=== PATIENT | male | born 1940 | race Caucasian/White ===

== ENCOUNTER 2018-03-20 16:18 | Inpatient (IN) | payer MEDICARE, OTHER ==
[~2018-03-20] VITALS: Ht 168.9 cm; Wt 85.0 kg
[2018-03-20 17:24] VITALS: BP 153/80
[2018-03-20] MEDS ORDERED: LOSA1TAB39 (17:56)
[2018-03-20] MEDS ORDERED: HYDR-3972 (17:56)
[2018-03-20] MEDS ORDERED: LEVO125T8 (17:56)
[2018-03-20] MEDS ORDERED: PANT40TA4 (17:56)
[2018-03-20] MEDS ORDERED: METO50TA16 (17:56)
[2018-03-20] MEDS ORDERED: ZOLP10TA5 (17:56)
[2018-03-20] MEDS ORDERED: ATOR10TA70 (17:57)
[2018-03-20] MEDS ORDERED: mag hydrox/Alum hydrox/simeth 30ml oral suspension PO PRN (18:25)
[2018-03-20] MEDS ORDERED: magnesium 2GM in 50ml NS 50 ML IV PRN (18:25)
[2018-03-20] MEDS ORDERED: HYDROcodone/acetaminophen 10/325mg tab PO PRN (18:25)
[2018-03-20] MEDS ORDERED: magnesium 4gm in 100ml NS 100 ML IV PRN (18:25)
[2018-03-20] MEDS ORDERED: magnesium Cl slow-release 64mg tablet PO PRN (18:25)
[2018-03-20] MEDS ORDERED: morphine 4 MG/ML inj SYRINge IV PRN ×2 (18:25)
[2018-03-20] MEDS ORDERED: magnesium hydroxide 30ml (MOM) UD suspension PO PRN (18:25)
[2018-03-20] MEDS ORDERED: acetaminophen 325mg tablet PO PRN ×2 (18:25)
[2018-03-20] MEDS ORDERED: HYDROcodone/acetaminophen 5mg/325mg tablet PO PRN (18:25)
[2018-03-20] MEDS: K and/or MAG REPLACEMENT MC SCH (18:25)
[2018-03-20] MEDS ORDERED: potassium Cl 20 mEq SR tablet PO PRN (18:25)
[2018-03-20] MEDS ORDERED: potassium Cl 40MEQ/NS 500ml 500 ML IV PRN ×2 (18:25)
[2018-03-20] MEDS ORDERED: ondansetron/PF 4mg/2ml inj IV PRN (18:25)
[2018-03-20 19:36] LABS: BASOPHILS % (AUTO) 0.5 % (0-1); EOSINOPHILS # (AUTO) 0.1 X10'3 (0-0.9); EOSINOPHILS % (AUTO) 1.9 % (0-6); HEMATOCRIT 35.8 % (42.0-52.0); HEMOGLOBIN 12.2 g/dl (14.0-17.9); LYMPHOCYTES # (AUTO) 1.4 X10'3 (1.1-4.8); LYMPHOCYTES % (AUTO) 21.5 % (21-51); MEAN CORPUSCULAR HEMOGLOBIN 31.5 PG (27.0-31.0); MEAN CORPUSCULAR HGB CONC 34.2 % (33.0-36.5); MEAN CORPUSCULAR VOLUME 92.2 FL (78-98); MEAN PLATELET VOLUME 7.7 FL (7.4-10.4); MONOCYTES # (AUTO) 0.5 X10'3 (0-0.9); MONOCYTES % (AUTO) 8.3 % (2-12); NEUTROPHILS # (AUTO) 4.4 X10'3 (1.8-7.7); NEUTROPHILS % (AUTO) 67.8 % (42-75); PLATELET COUNT 213 X10'3 (140-440); RED BLOOD COUNT 3.88 X10'6 (4.70-6.10); RED CELL DISTRIBUTION WIDTH 12.5 % (11.5-14.5); WHITE BLOOD COUNT 6.4 X10'3 (4.5-11.0)
[2018-03-20 20:00] VITALS: BP 134/71
[2018-03-20 20:01] LABS: ALANINE AMINOTRANSFERASE 20 U/L (12-78); ALBUMIN 3.5 G/DL (3.4-5.0); ALKALINE PHOSPHATASE 72 IU/L (46-116); ANION GAP 9 (8-16); ASPARTATE AMINO TRANSFERASE 15 U/L (10-37); BILIRUBIN,TOTAL 0.6 MG/DL (0.1-1.0); BLOOD UREA NITROGEN 14 MG/DL (7-18); BUN/CREATININE RATIO 19.2 (5.4-32.0); CALCIUM 9.1 MG/DL (8.5-10.1); CHLORIDE 104 MMOL/L (99-107); CREATININE 0.73 MG/DL (0.60-1.10); GLUCOSE 96 MG/DL (70-104); POTASSIUM 3.3 MMOL/L (3.5-5.1); SODIUM 143 MMOL/L (135-145); TOTAL CARBON DIOXIDE 30.3 MMOL/L (24-32); eGFR > 90 ML/MIN
[2018-03-20] MEDS: metoprolol succinate 25mg (24-HOUR) SR. Tablet PO SCH (20:09)
[2018-03-20] MEDS: normal saline 1000ml 1,000 ML IV SCH (20:25)
[2018-03-20] MEDS: piperacillin/tazo 3.375gm/50ml 50 ML IV SCH (20:25)
[2018-03-20] MEDS: temazepam 15mg capsule PO PRN (22:21)
[2018-03-20] MEDS: potassium Cl 20 mEq SR tablet PO PRN (22:21)
[2018-03-21] VITALS (20 sets, daily range): BP systolic 115–149; BP diastolic 53–78
[2018-03-21] MEDS: piperacillin/tazo 3.375gm/50ml 50 ML IV SCH ×4 (02:38→21:12)
[2018-03-21] MEDS: normal saline 1000ml 1,000 ML IV SCH ×2 (04:25→09:38)
[2018-03-21 05:27] LABS: BASOPHILS % (AUTO) 0.7 % (0-1); EOSINOPHILS # (AUTO) 0.2 X10'3 (0-0.9); EOSINOPHILS % (AUTO) 5.1 % (0-6); HEMATOCRIT 34.7 % (42.0-52.0); HEMOGLOBIN 11.7 g/dl (14.0-17.9); LYMPHOCYTES # (AUTO) 1.4 X10'3 (1.1-4.8); LYMPHOCYTES % (AUTO) 29.2 % (21-51); MEAN CORPUSCULAR HEMOGLOBIN 31.4 PG (27.0-31.0); MEAN CORPUSCULAR HGB CONC 33.6 % (33.0-36.5); MEAN CORPUSCULAR VOLUME 93.3 FL (78-98); MEAN PLATELET VOLUME 7.9 FL (7.4-10.4); MONOCYTES # (AUTO) 0.5 X10'3 (0-0.9); MONOCYTES % (AUTO) 10.9 % (2-12); NEUTROPHILS # (AUTO) 2.6 X10'3 (1.8-7.7); NEUTROPHILS % (AUTO) 54.1 % (42-75); PLATELET COUNT 211 X10'3 (140-440); RED BLOOD COUNT 3.72 X10'6 (4.70-6.10); RED CELL DISTRIBUTION WIDTH 12.6 % (11.5-14.5); WHITE BLOOD COUNT 4.8 X10'3 (4.5-11.0)
[2018-03-21 05:50] LABS: ALANINE AMINOTRANSFERASE 17 U/L (12-78); ALKALINE PHOSPHATASE 62 IU/L (46-116); ANION GAP 9 (8-16); ASPARTATE AMINO TRANSFERASE 14 U/L (10-37); BILIRUBIN,TOTAL 0.8 MG/DL (0.1-1.0); BLOOD UREA NITROGEN 10 MG/DL (7-18); BUN/CREATININE RATIO 13.5 (5.4-32.0); CALCIUM 8.4 MG/DL (8.5-10.1); CHLORIDE 106 MMOL/L (99-107); CREATININE 0.74 MG/DL (0.60-1.10); GLUCOSE 100 MG/DL (70-104); MAGNESIUM 1.9 MG/DL (1.5-2.4); POTASSIUM 3.1 MMOL/L (3.5-5.1); SODIUM 143 MMOL/L (135-145); TOTAL CARBON DIOXIDE 27.6 MMOL/L (24-32); TOTAL PROTEIN 6.1 G/DL (6.4-8.2); eGFR > 90 ML/MIN
[2018-03-21] MEDS: K and/or MAG REPLACEMENT MC SCH (06:32)
[2018-03-21] MEDS: levoTHYROXINE 125mcg tablet PO SCH (06:52)
[2018-03-21] MEDS: losartan 50mg tablet PO SCH (07:10)
[2018-03-21] MEDS: metoprolol succinate 25mg (24-HOUR) SR. Tablet PO SCH ×2 (07:10→21:12)
[2018-03-21] MEDS ORDERED: fentaNYL/PF 50MCG/1 ML 2ML syringe ONE (13:52)
[2018-03-21] MEDS ORDERED: midazolam 2 mg/2 ml injection ONE (13:52)
[2018-03-21] MEDS ORDERED: LIDOcaine 0.5% (5mg/ml) 50ml vial ONE (14:01)
[2018-03-21] MEDS: potassium Cl 20 mEq SR tablet PO PRN (21:11)
[2018-03-21] MEDS: lactobacillus rhamnosus 10,000 MMU CELLS/CAPSULE PO SCH (21:11)
[2018-03-22] MEDS: temazepam 15mg capsule PO PRN (00:40)
[2018-03-22 00:57] VITALS: BP 112/62
[2018-03-22] MEDS: piperacillin/tazo 3.375gm/50ml 50 ML IV SCH ×2 (02:12→07:35)
[2018-03-22] MEDS: potassium Cl 20 mEq SR tablet PO PRN (02:12)
[2018-03-22] MEDS: normal saline 1000ml 1,000 ML IV SCH ×2 (02:13→10:25)
[2018-03-22 04:50] VITALS: BP 141/84
[2018-03-22 05:29] LABS: BASOPHILS % (AUTO) 0.6 % (0-1); EOSINOPHILS # (AUTO) 0.2 X10'3 (0-0.9); EOSINOPHILS % (AUTO) 3.7 % (0-6); HEMATOCRIT 34.9 % (42.0-52.0); HEMOGLOBIN 11.9 g/dl (14.0-17.9); LYMPHOCYTES # (AUTO) 1.5 X10'3 (1.1-4.8); MEAN CORPUSCULAR HEMOGLOBIN 31.4 PG (27.0-31.0); MEAN CORPUSCULAR VOLUME 92.3 FL (78-98); MEAN PLATELET VOLUME 7.6 FL (7.4-10.4); MONOCYTES # (AUTO) 0.5 X10'3 (0-0.9); MONOCYTES % (AUTO) 8.6 % (2-12); NEUTROPHILS # (AUTO) 4.1 X10'3 (1.8-7.7); NEUTROPHILS % (AUTO) 64.1 % (42-75); PLATELET COUNT 215 X10'3 (140-440); RED BLOOD COUNT 3.79 X10'6 (4.70-6.10); RED CELL DISTRIBUTION WIDTH 12.9 % (11.5-14.5); WHITE BLOOD COUNT 6.4 X10'3 (4.5-11.0)
[2018-03-22 05:49] LABS: ALANINE AMINOTRANSFERASE 22 U/L (12-78); ALBUMIN 2.8 G/DL (3.4-5.0); ALBUMIN/GLOBULIN RATIO 0.9 (1.1-1.5); ALKALINE PHOSPHATASE 58 IU/L (46-116); ANION GAP 7 (8-16); ASPARTATE AMINO TRANSFERASE 15 U/L (10-37); BILIRUBIN,TOTAL 0.6 MG/DL (0.1-1.0); BLOOD UREA NITROGEN 9 MG/DL (7-18); BUN/CREATININE RATIO 11.4 (5.4-32.0); CALCIUM 8.2 MG/DL (8.5-10.1); CHLORIDE 109 MMOL/L (99-107); CREATININE 0.79 MG/DL (0.60-1.10); GLUCOSE 88 MG/DL (70-104); MAGNESIUM 1.9 MG/DL (1.5-2.4); PHOSPHORUS 3.1 MG/DL (2.3-4.5); POTASSIUM 3.9 MMOL/L (3.5-5.1); SODIUM 144 MMOL/L (135-145); TOTAL CARBON DIOXIDE 28.4 MMOL/L (24-32); eGFR > 90 ML/MIN
[2018-03-22] MEDS: K and/or MAG REPLACEMENT MC SCH (06:34)
[2018-03-22] MEDS: metoprolol succinate 25mg (24-HOUR) SR. Tablet PO SCH (07:34)
[2018-03-22] MEDS: losartan 50mg tablet PO SCH (07:34)
[2018-03-22] MEDS: lactobacillus rhamnosus 10,000 MMU CELLS/CAPSULE PO SCH (07:34)
[2018-03-22] MEDS: levoTHYROXINE 125mcg tablet PO SCH (07:34)
[2018-03-22 08:00] VITALS: BP 140/79
[2018-03-22] MEDS ORDERED: LEVO125T8 PO (10:46)
[2018-03-22] MEDS ORDERED: AMOX-419 PO (10:46)
[2018-03-22] MEDS ORDERED: LACT1CAP26 PO (10:46)
[2018-03-23] MEDS ORDERED: levoTHYROXINE 125mcg tablet PO SCH (07:00)
== END 2018-03-22 11:55 | disposition home or self-care (01) | DRG 392 ==
LOC: PAS IN 16:18 → INTOOBSV 16:18 → SUR 3N 16:19 → OBSVTOIN 18:25
PROVIDERS: ADMIT Family Medicine; ATTEND Family Medicine
PROC: 0J9C30Z Drainage of Pelvic Region Subcutaneous Tissue and Fascia with Drainage Device, Percutaneous Approach (ICD-10-PCS; principal; 2018-03-21)
DX: K57.80 Diverticulitis of intestine, part unspecified, with perforation and abscess without bleeding (principal); E03.9 Hypothyroidism, unspecified; E87.6 Hypokalemia; K21.9 Gastro-esophageal reflux disease without esophagitis; E78.5 Hyperlipidemia, unspecified; I10 Essential (primary) hypertension; Z96.652 Presence of left artificial knee joint; Z79.899 Other long term (current) drug therapy; Z87.891 Personal history of nicotine dependence
CPT/HCPCS: 36415; 49406; 80053; 83735; 84100; 84443; 85025; 87070; 87077; 87186; 99152; 99153; A6257; C1729; G0378; J2001; J2250; J2543; J3010; J7030

== ENCOUNTER 2018-04-18 07:30 | Inpatient (IN) | payer MEDICARE, OTHER ==
[2018-04-16 16:04] LABS: BASOPHILS % (AUTO) 0.5 % (0-1); EOSINOPHILS # (AUTO) 0.2 X10'3 (0-0.9); EOSINOPHILS % (AUTO) 2.8 % (0-6); LYMPHOCYTES # (AUTO) 1.5 X10'3 (1.1-4.8); MEAN CORPUSCULAR HEMOGLOBIN 31.2 PG (27.0-31.0); MEAN CORPUSCULAR VOLUME 91.5 FL (78-98); MEAN PLATELET VOLUME 7.6 FL (7.4-10.4); MONOCYTES # (AUTO) 0.6 X10'3 (0-0.9); MONOCYTES % (AUTO) 8.2 % (2-12); NEUTROPHILS # (AUTO) 4.8 X10'3 (1.8-7.7); NEUTROPHILS % (AUTO) 67.5 % (42-75); PRE OP HEMATOCRIT 37.3 % (42.0-52.0); PRE OP HEMOGLOBIN 12.7 g/dL (14.0-17.9); PRE OP PLATELET COUNT 253 X10'3 (140-440); RED BLOOD COUNT 4.08 X10'6 (4.70-6.10); RED CELL DISTRIBUTION WIDTH 13.1 % (11.5-14.5)
[2018-04-16 16:11] LABS: CLARITY,URINE CLEAR (Clear); COLOR,URINE YELLOW (Yellow); GLUCOSE, URINE NEGATIVE (Neg); KETONES,URINE NEGATIVE (Neg); LEUKOCYTE ESTERASE ,URINE NEGATIVE (Neg); NITRITES, URINE NEGATIVE (Neg); OCCULT BLOOD,URINE NEGATIVE (Neg); PH,URINE 6.5 (4.8-8.0); PROTEIN,URINE NEGATIVE (Neg); UROBILINOGEN,URINE 0.2 E.U/dL (0.2-1.0)
[2018-04-16 16:14] LABS: UA COLLECTION TYPE NON-SPECIFIED
[2018-04-16 16:30] LABS: PRE OP PROTIME 10.5 SECONDS (9.0-12.0)
[2018-04-16 16:36] LABS: ALBUMIN 3.5 G/DL (3.4-5.0); ALBUMIN/GLOBULIN RATIO 0.9 (1.1-1.5); ALKALINE PHOSPHATASE 86 IU/L (46-116); BLOOD UREA NITROGEN 12 MG/DL (7-18); BUN/CREATININE RATIO 14.8 (5.4-32.0); CALCIUM 9.2 MG/DL (8.5-10.1); CHLORIDE 102 MMOL/L (99-107); CREATININE 0.81 MG/DL (0.60-1.10); PRE OP ALT 22 U/L (30-65); PRE OP ANION GAP 13 (8-16); PRE OP AST 17 U/L (10-37); PRE OP BILIRUB, TOTAL 0.6 MG/DL (0.0-1.0); PRE OP GLUCOSE 91 MG/DL (70-104); PRE OP POTASSIUM 3.7 MMOL/L (3.4-5.1); PRE OP SODIUM 144 MMOL/L (135-145); TOTAL CARBON DIOXIDE 29.4 MMOL/L (24-32); TOTAL PROTEIN 7.6 G/DL (6.4-8.2); eGFR > 90 ML/MIN
[~2018-04-18] VITALS: Ht 167.6 cm; Wt 84.2 kg
[2018-04-18] VITALS (25 sets, daily range): BP systolic 118–156; BP diastolic 56–94
[~2018-04-18 07:30] MED LIST: AMOX-419 PO; ATOR10TA70 PO; DOCUMENT DATE & TIME OF BETA-BLOCKER PO ONE; HYDR-3972 PO; LEVO125T8 PO; LORA1TAB PO; LOSA1TAB39 PO; METO50TA16 PO; PANT40TA4 PO; PARO20TA6 PO; ZOLP10TA5 PO; ceFOXitin 2 GM ADDvantage bag 100 ML IV ONE; famotidine 20mg tablet PO ONE
[2018-04-18] MEDS: ringers solution, lacted 1,000 ML IV SCH ×2 (10:14→19:36)
[2018-04-18] MEDS ORDERED: LIDOcaine 1% (10mg/ml) 2ml vial ONE (10:16)
[2018-04-18] MEDS ORDERED: LEVO112T5 PO (11:13)
[2018-04-18] MEDS ORDERED: albuterol 2.5 MG/3 ML nebule NEB ONE (12:05)
[2018-04-18] MEDS ORDERED: ceFAZolin 1000mg inj ONE (12:07)
[2018-04-18] MEDS ORDERED: ROPIVAcaine 0.5% (5mg/ml) 30ml vial ONE (12:07)
[2018-04-18] MEDS ORDERED: sevoflurane 250ml liquid IH ONE (13:08)
[2018-04-18] MEDS ORDERED: ePHEDrine 50MG/ML INJ. ONE (13:08)
[2018-04-18] MEDS ORDERED: ondansetron/PF 4mg/2ml inj ONE (13:08)
[2018-04-18] MEDS ORDERED: albuterol 2.5 MG/3 ML nebule ONE (13:08)
[2018-04-18] MEDS ORDERED: fentaNYL /PF 50mcg/ml 5ml ampule ONE (13:11)
[2018-04-18] MEDS ORDERED: rocuronium 10mg/ml inj IV ONE (13:22)
[2018-04-18] MEDS ORDERED: LIDOcaine 2% (20mg/ml) 5ml vial ONE (13:22)
[2018-04-18] MEDS ORDERED: propofol inj 0 ML IV ONE (13:22)
[2018-04-18] MEDS ORDERED: propofol inj 20 ML IV ONE (13:29)
[2018-04-18] MEDS ORDERED: dexamethasone sod phosphate 4mg/ml inj. ONE (13:33)
[2018-04-18] MEDS ORDERED: fentaNYL/PF 50MCG/1 ML 2ML syringe ONE (15:28)
[2018-04-18] MEDS ORDERED: midazolam 2 mg/2 ml injection ONE (15:30)
[2018-04-18] MEDS ORDERED: morphine 4 MG/ML inj SYRINge ONE ×3 (15:37→15:54)
[2018-04-18] MEDS ORDERED: ringers solution, lacted 1,000 ML IV SCH (15:49)
[2018-04-18] MEDS ORDERED: morphine 4 MG/ML inj SYRINge IV PRN ×3 (15:50→20:00)
[2018-04-18] MEDS ORDERED: ondansetron/PF 4mg/2ml inj IV PRN ×2 (15:50→20:00)
[2018-04-18] MEDS ORDERED: HYDROmorphone inj. 0.5 MG/0.5 ML DISP.SYRIN IV PRN ×2 (15:50)
[2018-04-18] MEDS ORDERED: furosemide 40mg/4ml inj ONE (16:00)
[2018-04-18] MEDS ORDERED: neostigmine methylsulfate 1 MG/ML 10ml vial ONE (16:00)
[2018-04-18] MEDS ORDERED: glycopyrrolate 0.2mg/ml inj ONE (16:00)
[2018-04-18] MEDS ORDERED: HYDROmorphone 1 mg/ml syringe ONE (16:05)
[2018-04-18] MEDS: HYDROmorphone 1 mg/ml syringe IV PRN ×5 (16:17→16:41)
[2018-04-18] MEDS ORDERED: HYDROmorphone/NS 1 mg/ml CADD 50 ML IV SCH (17:05)
[2018-04-18] MEDS ORDERED: naloxone 0.4 mg/ml inj IV PRN (17:10)
[2018-04-18] MEDS ORDERED: CADD PCA waste documentation MC SCH (17:10)
[2018-04-18] MEDS: HYDROmorphone/NS 1 mg/ml CADD 50 ML IV SCH (17:20)
[2018-04-18] MEDS ORDERED: LORazepam 1 MG tablet PO PRN (20:00)
[2018-04-18] MEDS ORDERED: acetaminophen 650mg rectal suppository RC PRN (20:00)
[2018-04-18] MEDS: zolpidem 5mg tablet PO SCH (21:00)
[2018-04-19] VITALS (19 sets, daily range): BP systolic 106–144; BP diastolic 50–85
[2018-04-19] MEDS: HYDROmorphone/NS 1 mg/ml CADD 50 ML IV SCH ×12 (05:00→20:46)
[2018-04-19 05:07] LABS: PARTIAL THROMBOPLASTIN TIME 29 SECONDS (22-32); PROTHROMBIN TIME 10.7 SECONDS (9.0-12.0)
[2018-04-19 05:15] LABS: ALANINE AMINOTRANSFERASE 19 U/L (12-78); ALBUMIN 2.8 G/DL (3.4-5.0); ALBUMIN/GLOBULIN RATIO 0.8 (1.1-1.5); ALKALINE PHOSPHATASE 69 IU/L (46-116); ANION GAP 10 (8-16); ASPARTATE AMINO TRANSFERASE 18 U/L (10-37); BILIRUBIN,TOTAL 0.5 MG/DL (0.1-1.0); BLOOD UREA NITROGEN 12 MG/DL (7-18); CALCIUM 8.4 MG/DL (8.5-10.1); CHLORIDE 105 MMOL/L (99-107); GLUCOSE 148 MG/DL (70-104); MAGNESIUM 1.5 MG/DL (1.5-2.4); PHOSPHORUS 4.1 MG/DL (2.3-4.5); POTASSIUM 4.2 MMOL/L (3.5-5.1); SODIUM 142 MMOL/L (135-145); TOTAL CARBON DIOXIDE 26.9 MMOL/L (24-32); TOTAL PROTEIN 6.3 G/DL (6.4-8.2); eGFR 73 ML/MIN
[2018-04-19 05:21] LABS: BASOPHILS % (AUTO) 0 % (0-1); EOSINOPHILS # (AUTO) 0.1 X10'3 (0-0.9); EOSINOPHILS % (AUTO) 1.2 % (0-6); HEMATOCRIT 33.9 % (42.0-52.0); HEMOGLOBIN 11.5 g/dl (14.0-17.9); LYMPHOCYTES # (AUTO) 0.4 X10'3 (1.1-4.8); LYMPHOCYTES % (AUTO) 3.6 % (21-51); MEAN CORPUSCULAR HEMOGLOBIN 31.2 PG (27.0-31.0); MEAN CORPUSCULAR HGB CONC 33.9 % (33.0-36.5); MEAN PLATELET VOLUME 7.8 FL (7.4-10.4); MONOCYTES % (AUTO) 8.6 % (2-12); NEUTROPHILS # (AUTO) 9.6 X10'3 (1.8-7.7); NEUTROPHILS % (AUTO) 86.6 % (42-75); PLATELET COUNT 223 X10'3 (140-440); RED BLOOD COUNT 3.69 X10'6 (4.70-6.10); RED CELL DISTRIBUTION WIDTH 12.9 % (11.5-14.5); WHITE BLOOD COUNT 11.1 X10'3 (4.5-11.0)
[2018-04-19] MEDS: pantoprazole 40mg Tablet.DR PO SCH (08:00)
[2018-04-19] MEDS: atorvastatin 10mg tablet PO SCH (08:00)
[2018-04-19] MEDS: PARoxetine 20mg tablet PO SCH (08:00)
[2018-04-19] MEDS: metoprolol tartrate 50mg tablet PO SCH (08:00)
[2018-04-19] MEDS: HYDROchlorothiazide 12.5mg capsule PO SCH (08:00)
[2018-04-19] MEDS: levoTHYROXINE 112mcg tablet PO SCH (08:00)
[2018-04-19] MEDS: losartan 50mg tablet PO SCH (08:00)
[2018-04-19] MEDS ORDERED: levoTHYROXINE sod inj. 100mcg/5 ml vial IV SCH (08:20)
[2018-04-19] MEDS: piperacillin/tazo 3.375gm/50ml 50 ML IV SCH ×3 (08:48→20:58)
[2018-04-19] MEDS: HYDROmorphone 1 mg/ml syringe IV PRN ×2 (20:57→23:46)
[2018-04-19] MEDS: zolpidem 5mg tablet PO SCH (21:00)
[2018-04-20 00:47] VITALS: BP 105/57
[2018-04-20] MEDS: piperacillin/tazo 3.375gm/50ml 50 ML IV SCH ×4 (02:07→19:33)
[2018-04-20] MEDS: HYDROmorphone 1 mg/ml syringe IV PRN (02:50)
[2018-04-20] MEDS: normal saline 1000ml 1,000 ML IV SCH ×3 (02:51→22:32)
[2018-04-20] MEDS ORDERED: HYDROmorphone inj. 0.5 MG/0.5 ML DISP.SYRIN IV PRN (05:15)
[2018-04-20] MEDS ORDERED: HYDROmorphone 1 mg/ml syringe IV PRN (05:15)
[2018-04-20] MEDS ORDERED: HYDROmorphone 1 mg/ml syringe IV ONE (05:15)
[2018-04-20 05:28] LABS: INR 1.1 INR; PARTIAL THROMBOPLASTIN TIME 33 SECONDS (22-32); PROTHROMBIN TIME 11.1 SECONDS (9.0-12.0)
[2018-04-20 05:32] LABS: BASOPHILS % (AUTO) 0.2 % (0-1); EOSINOPHILS % (AUTO) 0.1 % (0-6); HEMATOCRIT 28.2 % (42.0-52.0); HEMOGLOBIN 9.7 g/dl (14.0-17.9); LYMPHOCYTES # (AUTO) 0.9 X10'3 (1.1-4.8); LYMPHOCYTES % (AUTO) 9.2 % (21-51); MEAN CORPUSCULAR HEMOGLOBIN 31.8 PG (27.0-31.0); MEAN CORPUSCULAR HGB CONC 34.4 % (33.0-36.5); MEAN CORPUSCULAR VOLUME 92.4 FL (78-98); MEAN PLATELET VOLUME 7.9 FL (7.4-10.4); MONOCYTES # (AUTO) 0.8 X10'3 (0-0.9); MONOCYTES % (AUTO) 8.9 % (2-12); NEUTROPHILS # (AUTO) 7.7 X10'3 (1.8-7.7); NEUTROPHILS % (AUTO) 81.6 % (42-75); PLATELET COUNT 195 X10'3 (140-440); RED BLOOD COUNT 3.05 X10'6 (4.70-6.10); RED CELL DISTRIBUTION WIDTH 12.2 % (11.5-14.5); WHITE BLOOD COUNT 9.4 X10'3 (4.5-11.0)
[2018-04-20] MEDS ORDERED: acetaminophen 325mg tablet PO PRN ×2 (05:35)
[2018-04-20 05:47] LABS: ALANINE AMINOTRANSFERASE 14 U/L (12-78); ALBUMIN 2.5 G/DL (3.4-5.0); ALBUMIN/GLOBULIN RATIO 0.7 (1.1-1.5); ALKALINE PHOSPHATASE 63 IU/L (46-116); ANION GAP 8 (8-16); ASPARTATE AMINO TRANSFERASE 19 U/L (10-37); BILIRUBIN,TOTAL 0.6 MG/DL (0.1-1.0); BLOOD UREA NITROGEN 15 MG/DL (7-18); BUN/CREATININE RATIO 16.3 (5.4-32.0); CALCIUM 8.7 MG/DL (8.5-10.1); CHLORIDE 106 MMOL/L (99-107); CREATININE 0.92 MG/DL (0.60-1.10); GLUCOSE 107 MG/DL (70-104); MAGNESIUM 1.5 MG/DL (1.5-2.4); PHOSPHORUS 1.8 MG/DL (2.3-4.5); POTASSIUM 3.2 MMOL/L (3.5-5.1); SODIUM 143 MMOL/L (135-145); TOTAL PROTEIN 5.9 G/DL (6.4-8.2); eGFR 80 ML/MIN
[2018-04-20 08:15] VITALS: BP 161/88
[2018-04-20] MEDS: atorvastatin 10mg tablet PO SCH (08:27)
[2018-04-20] MEDS: losartan 50mg tablet PO SCH (08:27)
[2018-04-20] MEDS: PARoxetine 20mg tablet PO SCH (08:27)
[2018-04-20] MEDS: HYDROchlorothiazide 12.5mg capsule PO SCH (08:27)
[2018-04-20] MEDS: levoTHYROXINE 112mcg tablet PO SCH (08:27)
[2018-04-20] MEDS: metoprolol tartrate 50mg tablet PO SCH (08:27)
[2018-04-20] MEDS: pantoprazole 40mg Tablet.DR PO SCH (08:28)
[2018-04-20 12:00] VITALS: BP 114/64
[2018-04-20 18:00] VITALS: BP 118/62
[2018-04-20 18:32] VITALS: BP 118/62
[2018-04-20] MEDS: lactobacillus rhamnosus 10,000 MMU CELLS/CAPSULE PO SCH (19:33)
[2018-04-20] MEDS: HYDROcodone/acetaminophen 10/325mg tab PO PRN (19:37)
[2018-04-20] MEDS: zolpidem 5mg tablet PO SCH (20:45)
[2018-04-21] VITALS: BP 104/66
[2018-04-21] MEDS: piperacillin/tazo 3.375gm/50ml 50 ML IV SCH ×4 (02:59→20:19)
[2018-04-21 05:19] LABS: BASOPHILS % (AUTO) 0.5 % (0-1); EOSINOPHILS # (AUTO) 0.1 X10'3 (0-0.9); EOSINOPHILS % (AUTO) 0.9 % (0-6); HEMATOCRIT 26.7 % (42.0-52.0); LYMPHOCYTES # (AUTO) 0.9 X10'3 (1.1-4.8); LYMPHOCYTES % (AUTO) 10.5 % (21-51); MEAN CORPUSCULAR HEMOGLOBIN 31.1 PG (27.0-31.0); MEAN CORPUSCULAR HGB CONC 33.7 % (33.0-36.5); MEAN CORPUSCULAR VOLUME 92.1 FL (78-98); MEAN PLATELET VOLUME 7.7 FL (7.4-10.4); MONOCYTES # (AUTO) 0.6 X10'3 (0-0.9); MONOCYTES % (AUTO) 7.2 % (2-12); NEUTROPHILS # (AUTO) 6.6 X10'3 (1.8-7.7); NEUTROPHILS % (AUTO) 80.9 % (42-75); PLATELET COUNT 203 X10'3 (140-440); RED CELL DISTRIBUTION WIDTH 13.4 % (11.5-14.5); WHITE BLOOD COUNT 8.1 X10'3 (4.5-11.0)
[2018-04-21 05:22] LABS: INR 1.1 INR; PARTIAL THROMBOPLASTIN TIME 31 SECONDS (22-32); PROTHROMBIN TIME 10.9 SECONDS (9.0-12.0)
[2018-04-21 05:37] LABS: ALANINE AMINOTRANSFERASE 22 U/L (12-78); ALBUMIN 2.1 G/DL (3.4-5.0); ALBUMIN/GLOBULIN RATIO 0.6 (1.1-1.5); ALKALINE PHOSPHATASE 51 IU/L (46-116); ANION GAP 10 (8-16); ASPARTATE AMINO TRANSFERASE 28 U/L (10-37); BILIRUBIN,TOTAL 0.6 MG/DL (0.1-1.0); BLOOD UREA NITROGEN 12 MG/DL (7-18); BUN/CREATININE RATIO 16.2 (5.4-32.0); CALCIUM 7.8 MG/DL (8.5-10.1); CHLORIDE 107 MMOL/L (99-107); CREATININE 0.74 MG/DL (0.60-1.10); GLUCOSE 85 MG/DL (70-104); MAGNESIUM 1.7 MG/DL (1.5-2.4); PHOSPHORUS 2.1 MG/DL (2.3-4.5); SODIUM 143 MMOL/L (135-145); TOTAL CARBON DIOXIDE 26.2 MMOL/L (24-32); TOTAL PROTEIN 5.6 G/DL (6.4-8.2); eGFR > 90 ML/MIN
[2018-04-21] MEDS ORDERED: magnesium/D5W IVPB 100 ML IV ONE (05:55)
[2018-04-21] MEDS: potassium Cl 40MEQ/NS 500ml 500 ML IV ONE ×2 (05:55→08:41)
[2018-04-21] MEDS ORDERED: potassium Cl 20 mEq SR tablet PO ONE (05:55)
[2018-04-21 07:10] VITALS: BP 110/62
[2018-04-21] MEDS: losartan 50mg tablet PO SCH (08:37)
[2018-04-21] MEDS: HYDROchlorothiazide 12.5mg capsule PO SCH (08:37)
[2018-04-21] MEDS: lactobacillus rhamnosus 10,000 MMU CELLS/CAPSULE PO SCH ×2 (08:37→20:18)
[2018-04-21] MEDS: metoprolol tartrate 50mg tablet PO SCH (08:37)
[2018-04-21] MEDS: PARoxetine 20mg tablet PO SCH (08:38)
[2018-04-21] MEDS: pantoprazole 40mg Tablet.DR PO SCH (08:39)
[2018-04-21] MEDS: atorvastatin 10mg tablet PO SCH (08:39)
[2018-04-21] MEDS: levoTHYROXINE 112mcg tablet PO SCH (08:41)
[2018-04-21] MEDS: normal saline 1000ml 1,000 ML IV SCH (08:44)
[2018-04-21] MEDS: HYDROcodone/acetaminophen 10/325mg tab PO PRN ×2 (08:44→20:19)
[2018-04-21] MEDS ORDERED: potassium phosphate inj 15 MMOL in normal saline 250ml IV soln 245 ML IV ONE (09:00)
[2018-04-21 12:00] VITALS: BP 115/63
[2018-04-21 18:00] VITALS: BP 121/61
[2018-04-21] MEDS: Potassium Cl inj 20 MEQ in normal saline 1000ml 990 ML IV SCH (20:18)
[2018-04-21] MEDS: zolpidem 5mg tablet PO SCH (20:19)
[2018-04-22] VITALS: BP 121/65
[2018-04-22] MEDS: piperacillin/tazo 3.375gm/50ml 50 ML IV SCH ×2 (02:00→08:09)
[2018-04-22 05:21] LABS: BASOPHILS % (AUTO) 0.6 % (0-1); EOSINOPHILS # (AUTO) 0.2 X10'3 (0-0.9); EOSINOPHILS % (AUTO) 2.9 % (0-6); HEMATOCRIT 26.9 % (42.0-52.0); HEMOGLOBIN 9.2 g/dl (14.0-17.9); LYMPHOCYTES # (AUTO) 0.7 X10'3 (1.1-4.8); LYMPHOCYTES % (AUTO) 10.3 % (21-51); MEAN CORPUSCULAR HEMOGLOBIN 31.3 PG (27.0-31.0); MEAN CORPUSCULAR HGB CONC 34.1 % (33.0-36.5); MEAN CORPUSCULAR VOLUME 91.7 FL (78-98); MEAN PLATELET VOLUME 7.4 FL (7.4-10.4); MONOCYTES # (AUTO) 0.5 X10'3 (0-0.9); MONOCYTES % (AUTO) 7.8 % (2-12); NEUTROPHILS # (AUTO) 5.3 X10'3 (1.8-7.7); NEUTROPHILS % (AUTO) 78.4 % (42-75); PLATELET COUNT 212 X10'3 (140-440); RED BLOOD COUNT 2.94 X10'6 (4.70-6.10); RED CELL DISTRIBUTION WIDTH 13.1 % (11.5-14.5); WHITE BLOOD COUNT 6.7 X10'3 (4.5-11.0)
[2018-04-22 06:01] LABS: ALANINE AMINOTRANSFERASE 26 U/L (12-78); ALBUMIN/GLOBULIN RATIO 0.6 (1.1-1.5); ALKALINE PHOSPHATASE 54 IU/L (46-116); ANION GAP 7 (8-16); ASPARTATE AMINO TRANSFERASE 26 U/L (10-37); BILIRUBIN,TOTAL 0.5 MG/DL (0.1-1.0); BLOOD UREA NITROGEN 8 MG/DL (7-18); BUN/CREATININE RATIO 10.7 (5.4-32.0); CALCIUM 7.5 MG/DL (8.5-10.1); CHLORIDE 105 MMOL/L (99-107); CREATININE 0.75 MG/DL (0.60-1.10); GLUCOSE 108 MG/DL (70-104); MAGNESIUM 1.6 MG/DL (1.5-2.4); PHOSPHORUS 2.5 MG/DL (2.3-4.5); POTASSIUM 3.1 MMOL/L (3.5-5.1); SODIUM 139 MMOL/L (135-145); TOTAL CARBON DIOXIDE 26.9 MMOL/L (24-32); TOTAL PROTEIN 5.4 G/DL (6.4-8.2); eGFR > 90 ML/MIN
[2018-04-22 07:09] VITALS: BP 119/64
[2018-04-22] MEDS: losartan 50mg tablet PO SCH (08:09)
[2018-04-22] MEDS: lactobacillus rhamnosus 10,000 MMU CELLS/CAPSULE PO SCH ×2 (08:10→20:50)
[2018-04-22] MEDS: levoTHYROXINE 112mcg tablet PO SCH (08:10)
[2018-04-22] MEDS: atorvastatin 10mg tablet PO SCH (08:10)
[2018-04-22] MEDS: pantoprazole 40mg Tablet.DR PO SCH (08:10)
[2018-04-22] MEDS: PARoxetine 20mg tablet PO SCH (08:10)
[2018-04-22] MEDS: metoprolol tartrate 50mg tablet PO SCH (08:10)
[2018-04-22] MEDS ORDERED: potassium Cl 40MEQ/NS 500ml 500 ML IV PRN ×2 (08:20)
[2018-04-22] MEDS ORDERED: magnesium Cl slow-release 64mg tablet PO PRN (08:20)
[2018-04-22] MEDS ORDERED: magnesium 4gm in 100ml NS 100 ML IV PRN (08:20)
[2018-04-22] MEDS ORDERED: magnesium/D5W IVPB 100 ML IV PRN (08:20)
[2018-04-22] MEDS: potassium Cl 20 mEq SR tablet PO PRN ×2 (08:38→13:11)
[2018-04-22] MEDS: Potassium Cl inj 20 MEQ in normal saline 1000ml 990 ML IV SCH (11:00)
[2018-04-22 11:34] VITALS: BP 124/68
[2018-04-22] MEDS: levoFLOXACIN-Levaquin 500mg/D5 100 ML IV SCH (12:19)
[2018-04-22] MEDS: metroNIDAZOLE-Flagyl 500mg/NS 100 ML IV SCH ×2 (16:18→23:31)
[2018-04-22 18:30] VITALS: BP 139/62
[2018-04-22] MEDS: zolpidem 5mg tablet PO SCH (20:50)
[2018-04-23] VITALS: BP_SYST 136; BP_SYST 139; BP_DIAS 62; BP_DIAS 72
[2018-04-23 05:11] LABS: BASOPHILS % (AUTO) 0.2 % (0-1); EOSINOPHILS # (AUTO) 0.2 X10'3 (0-0.9); EOSINOPHILS % (AUTO) 3.5 % (0-6); HEMATOCRIT 28.6 % (42.0-52.0); HEMOGLOBIN 9.6 g/dl (14.0-17.9); LYMPHOCYTES # (AUTO) 0.7 X10'3 (1.1-4.8); MEAN CORPUSCULAR HEMOGLOBIN 30.9 PG (27.0-31.0); MEAN CORPUSCULAR HGB CONC 33.7 % (33.0-36.5); MEAN CORPUSCULAR VOLUME 91.6 FL (78-98); MEAN PLATELET VOLUME 7.1 FL (7.4-10.4); MONOCYTES # (AUTO) 0.6 X10'3 (0-0.9); MONOCYTES % (AUTO) 9.6 % (2-12); NEUTROPHILS # (AUTO) 4.9 X10'3 (1.8-7.7); NEUTROPHILS % (AUTO) 75.7 % (42-75); PLATELET COUNT 234 X10'3 (140-440); RED BLOOD COUNT 3.13 X10'6 (4.70-6.10); RED CELL DISTRIBUTION WIDTH 12.8 % (11.5-14.5); WHITE BLOOD COUNT 6.5 X10'3 (4.5-11.0)
[2018-04-23 05:34] LABS: ALANINE AMINOTRANSFERASE 27 U/L (12-78); ALBUMIN 2.1 G/DL (3.4-5.0); ALBUMIN/GLOBULIN RATIO 0.6 (1.1-1.5); ALKALINE PHOSPHATASE 56 IU/L (46-116); ANION GAP 10 (8-16); ASPARTATE AMINO TRANSFERASE 27 U/L (10-37); BILIRUBIN,TOTAL 0.6 MG/DL (0.1-1.0); BLOOD UREA NITROGEN 5 MG/DL (7-18); BUN/CREATININE RATIO 6.7 (5.4-32.0); CALCIUM 8.2 MG/DL (8.5-10.1); CHLORIDE 105 MMOL/L (99-107); CREATININE 0.75 MG/DL (0.60-1.10); GLUCOSE 98 MG/DL (70-104); MAGNESIUM 1.3 MG/DL (1.5-2.4); PHOSPHORUS 2.6 MG/DL (2.3-4.5); POTASSIUM 3.6 MMOL/L (3.5-5.1); SODIUM 140 MMOL/L (135-145); TOTAL CARBON DIOXIDE 25.5 MMOL/L (24-32); TOTAL PROTEIN 5.6 G/DL (6.4-8.2); eGFR > 90 ML/MIN
[2018-04-23 07:00] VITALS: BP 125/72
[2018-04-23] MEDS ORDERED: ondansetron/PF 4mg/2ml inj IV PRN (07:45)
[2018-04-23] MEDS: metroNIDAZOLE-Flagyl 500mg/NS 100 ML IV SCH (07:50)
[2018-04-23] MEDS: lactobacillus rhamnosus 10,000 MMU CELLS/CAPSULE PO SCH ×2 (07:50→19:58)
[2018-04-23] MEDS: PARoxetine 20mg tablet PO SCH (07:50)
[2018-04-23] MEDS: metoprolol tartrate 50mg tablet PO SCH (07:50)
[2018-04-23] MEDS: levoTHYROXINE 112mcg tablet PO SCH (07:50)
[2018-04-23] MEDS: atorvastatin 10mg tablet PO SCH (07:50)
[2018-04-23] MEDS: losartan 50mg tablet PO SCH (07:50)
[2018-04-23] MEDS: pantoprazole 40mg Tablet.DR PO SCH (07:50)
[2018-04-23] MEDS: levoFLOXACIN-Levaquin 500mg/D5 100 ML IV SCH (09:56)
[2018-04-23 11:58] VITALS: BP 108/65
[2018-04-23] MEDS: HYDROcodone/acetaminophen 10/325mg tab PO PRN (16:00)
[2018-04-23 18:30] VITALS: BP 109/60
[2018-04-23] MEDS: zolpidem 5mg tablet PO SCH (20:59)
[2018-04-24] VITALS: BP 120/64
[2018-04-24 05:34] LABS: BASOPHILS % (AUTO) 0.5 % (0-1); EOSINOPHILS # (AUTO) 0.4 X10'3 (0-0.9); EOSINOPHILS % (AUTO) 4.8 % (0-6); HEMATOCRIT 28.7 % (42.0-52.0); HEMOGLOBIN 9.7 g/dl (14.0-17.9); LYMPHOCYTES # (AUTO) 0.8 X10'3 (1.1-4.8); LYMPHOCYTES % (AUTO) 10.8 % (21-51); MEAN CORPUSCULAR HGB CONC 33.9 % (33.0-36.5); MEAN CORPUSCULAR VOLUME 91.6 FL (78-98); MEAN PLATELET VOLUME 7.4 FL (7.4-10.4); MONOCYTES # (AUTO) 0.7 X10'3 (0-0.9); MONOCYTES % (AUTO) 9.2 % (2-12); NEUTROPHILS # (AUTO) 5.6 X10'3 (1.8-7.7); NEUTROPHILS % (AUTO) 74.7 % (42-75); PLATELET COUNT 238 X10'3 (140-440); RED BLOOD COUNT 3.13 X10'6 (4.70-6.10); RED CELL DISTRIBUTION WIDTH 13.2 % (11.5-14.5); WHITE BLOOD COUNT 7.5 X10'3 (4.5-11.0)
[2018-04-24 05:40] LABS: ALANINE AMINOTRANSFERASE 27 U/L (12-78); ALBUMIN 2.1 G/DL (3.4-5.0); ALBUMIN/GLOBULIN RATIO 0.7 (1.1-1.5); ALKALINE PHOSPHATASE 49 IU/L (46-116); ANION GAP 8 (8-16); ASPARTATE AMINO TRANSFERASE 19 U/L (10-37); BILIRUBIN,TOTAL 0.4 MG/DL (0.1-1.0); BLOOD UREA NITROGEN 8 MG/DL (7-18); BUN/CREATININE RATIO 11.4 (5.4-32.0); CALCIUM 8.1 MG/DL (8.5-10.1); CHLORIDE 105 MMOL/L (99-107); GLUCOSE 111 MG/DL (70-104); MAGNESIUM 1.4 MG/DL (1.5-2.4); PHOSPHORUS 3.1 MG/DL (2.3-4.5); SODIUM 140 MMOL/L (135-145); TOTAL CARBON DIOXIDE 26.6 MMOL/L (24-32); TOTAL PROTEIN 5.3 G/DL (6.4-8.2); eGFR > 90 ML/MIN
[2018-04-24 06:29] LABS: POTASSIUM 2.9 MMOL/L (3.5-5.1)
[2018-04-24 07:00] VITALS: BP 121/69
[2018-04-24] MEDS: levoTHYROXINE 112mcg tablet PO SCH (07:28)
[2018-04-24] MEDS: metoprolol tartrate 50mg tablet PO SCH (07:28)
[2018-04-24] MEDS: pantoprazole 40mg Tablet.DR PO SCH (07:28)
[2018-04-24] MEDS: losartan 50mg tablet PO SCH (07:29)
[2018-04-24] MEDS: atorvastatin 10mg tablet PO SCH (07:29)
[2018-04-24] MEDS: PARoxetine 20mg tablet PO SCH (07:29)
[2018-04-24] MEDS: lactobacillus rhamnosus 10,000 MMU CELLS/CAPSULE PO SCH (07:29)
[2018-04-24] MEDS: potassium Cl 20 mEq SR tablet PO PRN ×2 (07:29→12:20)
[2018-04-24] MEDS ORDERED: POTA10TA19 PO (10:06)
== END 2018-04-24 12:44 | disposition home or self-care (01) | DRG 329 ==
LOC: PAS IN 09:11 → EDSTATUS 13:15 → ICU 2S 17:26 → SUR 3N 04-19 16:40
PROVIDERS: ADMIT Surgery; ATTEND Family Medicine
PROC: 0W9G4ZZ Drainage of Peritoneal Cavity, Percutaneous Endoscopic Approach (ICD-10-PCS; 2018-04-18)
PROC: 0T9B70Z Drainage of Bladder with Drainage Device, Via Natural or Artificial Opening (ICD-10-PCS; 2018-04-18)
PROC: 0DBN4ZZ Excision of Sigmoid Colon, Percutaneous Endoscopic Approach (ICD-10-PCS; principal; 2018-04-18 13:08)
PROC: 0T788DZ Dilation of Bilateral Ureters with Intraluminal Device, Via Natural or Artificial Opening Endoscopic (ICD-10-PCS; 2018-04-18 13:08)
DX: K57.20 Diverticulitis of large intestine with perforation and abscess without bleeding (principal); K68.9 Other disorders of retroperitoneum; E43 Unspecified severe protein-calorie malnutrition; E03.9 Hypothyroidism, unspecified; E87.6 Hypokalemia; E83.39 Other disorders of phosphorus metabolism; E78.5 Hyperlipidemia, unspecified; F32.9 Major depressive disorder, single episode, unspecified; G47.00 Insomnia, unspecified; I10 Essential (primary) hypertension; Z68.30 Body mass index [BMI] 30.0-30.9, adult
CPT/HCPCS: 36415; 71046; 76001; 80053; 81003; 83735; 84100; 84132; 84443; 85025; 85610; 85730; 86885; 86900; 86901; 86920; 87070; 88307; 93005; 94640; 94760; 97110; 97116; 97161; 97530; A6223; A6253; A6255; A6258; A6402; A6446; A6449; A7000; C1758; C1769; J0690; J0694; J1100; J1170; J1940; J1956; J2001; J2250; J2270; J2405; J2543; J2704; J2710; J2795; J3010; J3480; J3490; J7030; J7120

== ENCOUNTER 2018-12-10 07:37 | Day surgery (SDC) | payer MEDICARE, OTHER ==
[~2018-12-10] VITALS: Ht 167.6 cm; Wt 84.1 kg
[~2018-12-10 07:37] MED LIST changes: -AMOX-419 PO; -DOCUMENT DATE & TIME OF BETA-BLOCKER PO ONE; +LEVO112T5 PO; -LEVO125T8 PO; -ceFOXitin 2 GM ADDvantage bag 100 ML IV ONE; -famotidine 20mg tablet PO ONE
[2018-12-10] MEDS ORDERED: normal saline 1000ml 1,000 ML IV PRN (08:00)
[2018-12-10 08:35] LABS: BASOPHILS # (AUTO) 0.1 X10'3 (0-0.2); BASOPHILS % (AUTO) 0.6 % (0-1); EOSINOPHILS # (AUTO) 0.2 X10'3 (0-0.9); EOSINOPHILS % (AUTO) 2.6 % (0-6); HEMOGLOBIN 12.5 g/dl (14.0-17.9); LYMPHOCYTES # (AUTO) 1.3 X10'3 (1.1-4.8); LYMPHOCYTES % (AUTO) 13.8 % (21-51); MEAN CORPUSCULAR HEMOGLOBIN 31.4 PG (27.0-31.0); MEAN CORPUSCULAR HGB CONC 33.8 % (33.0-36.5); MEAN PLATELET VOLUME 7.3 FL (7.4-10.4); MONOCYTES # (AUTO) 0.6 X10'3 (0-0.9); MONOCYTES % (AUTO) 6.5 % (2-12); NEUTROPHILS # (AUTO) 7.1 X10'3 (1.8-7.7); NEUTROPHILS % (AUTO) 76.5 % (42-75); PLATELET COUNT 306 X10'3 (140-440); RED BLOOD COUNT 3.97 X10'6 (4.70-6.10); RED CELL DISTRIBUTION WIDTH 13.2 % (11.5-14.5); WHITE BLOOD COUNT 9.3 X10'3 (4.5-11.0)
[2018-12-10 08:42] LABS: ALBUMIN 3.4 G/DL (3.4-5.0); ANION GAP 8 (8-16); BLOOD UREA NITROGEN 13 MG/DL (7-18); BUN/CREATININE RATIO 15.1 (5.4-32.0); CALCIUM 8.6 MG/DL (8.5-10.1); CHLORIDE 105 MMOL/L (99-107); CREATININE 0.86 MG/DL (0.60-1.10); GLUCOSE 112 MG/DL (70-104); POTASSIUM 3.6 MMOL/L (3.5-5.1); SODIUM 142 MMOL/L (135-145); TOTAL CARBON DIOXIDE 28.6 MMOL/L (24-32); eGFR 86 ML/MIN
[2018-12-10 08:47] VITALS: BP 136/84
[2018-12-10 09:00] LABS: INR 1.1 INR
[2018-12-10] MEDS ORDERED: fentaNYL/PF 50MCG/1 ML 2ML syringe IV PRN (09:30)
[2018-12-10] MEDS ORDERED: LIDOcaine 1%/PF 5ML 10 MG/ML VIAL SQ ONE (09:30)
[2018-12-10] MEDS ORDERED: midazolam 2 mg/2 ml injection IV PRN (09:30)
[2018-12-10] MEDS ORDERED: fentaNYL/PF 50MCG/1 ML 2ML syringe ONE (09:39)
[2018-12-10] MEDS ORDERED: midazolam 2 mg/2 ml injection ONE (09:39)
[2018-12-10] MEDS ORDERED: LIDOcaine 1%/PF 5ML 10 MG/ML VIAL ONE (09:47)
== END 2018-12-10 10:20 | disposition home or self-care (01) ==
LOC: SSTAY O 07:37
PROVIDERS: ATTEND Radiology Diagnostic Radiology
DX: K65.1 Peritoneal abscess (principal); Z53.8 Procedure and treatment not carried out for other reasons; K59.09 Other constipation; I10 Essential (primary) hypertension; E78.5 Hyperlipidemia, unspecified; E03.9 Hypothyroidism, unspecified; F17.210 Nicotine dependence, cigarettes, uncomplicated; K21.9 Gastro-esophageal reflux disease without esophagitis; M19.90 Unspecified osteoarthritis, unspecified site; H91.8X3 Other specified hearing loss, bilateral; F32.9 Major depressive disorder, single episode, unspecified; F41.8 Other specified anxiety disorders; Z72.89 Other problems related to lifestyle; Z96.652 Presence of left artificial knee joint; Z98.41 Cataract extraction status, right eye; Z98.42 Cataract extraction status, left eye; Z90.49 Acquired absence of other specified parts of digestive tract; Z85.850 Personal history of malignant neoplasm of thyroid; Z95.828 Presence of other vascular implants and grafts; Z98.890 Other specified postprocedural states; Z79.899 Other long term (current) drug therapy
CPT/HCPCS: 36415; 80048; 85025; 85610; J2001; J2250; J3010; J7030

== ENCOUNTER 2019-04-22 06:18 | Day surgery (SDC) | payer MEDICARE, OTHER ==
[~2019-04-22] VITALS: Ht 170.2 cm; Wt 85.8 kg
[2019-04-22] VITALS (14 sets, daily range): BP systolic 104–144; BP diastolic 54–77
[~2019-04-22 06:18] MED LIST changes: -HYDR-3972 PO; -PARO20TA6 PO
[2019-04-22] MEDS ORDERED: normal saline 1000ml 1,000 ML IV PRN (06:45)
[2019-04-22 07:25] LABS: BASOPHILS # (AUTO) 0.1 X10'3 (0-0.2); BASOPHILS % (AUTO) 0.6 % (0-1); EOSINOPHILS # (AUTO) 0.2 X10'3 (0-0.9); EOSINOPHILS % (AUTO) 2.3 % (0-6); HEMATOCRIT 38.7 % (42.0-52.0); HEMOGLOBIN 13.4 g/dl (14.0-17.9); LYMPHOCYTES # (AUTO) 1.8 X10'3 (1.1-4.8); LYMPHOCYTES % (AUTO) 17.8 % (21-51); MEAN CORPUSCULAR HEMOGLOBIN 31.8 PG (27.0-31.0); MEAN CORPUSCULAR HGB CONC 34.8 g/dL (33.0-36.5); MEAN CORPUSCULAR VOLUME 91.6 FL (78-98); MEAN PLATELET VOLUME 7.5 FL (7.4-10.4); MONOCYTES # (AUTO) 0.9 X10'3 (0-0.9); MONOCYTES % (AUTO) 8.3 % (2-12); NEUTROPHILS # (AUTO) 7.3 X10'3 (1.8-7.7); PLATELET COUNT 291 X10'3 (140-440); RED BLOOD COUNT 4.22 X10'6 (4.70-6.10); RED CELL DISTRIBUTION WIDTH 13.6 % (11.5-14.5); WHITE BLOOD COUNT 10.3 X10'3 (4.5-11.0)
[2019-04-22 07:36] LABS: ALBUMIN 3.7 G/DL (3.4-5.0); ANION GAP 7 (8-16); BLOOD UREA NITROGEN 16 MG/DL (7-18); BUN/CREATININE RATIO 19.3 (5.4-32.0); CALCIUM 9.2 MG/DL (8.5-10.1); CHLORIDE 103 MMOL/L (99-107); CREATININE 0.83 MG/DL (0.60-1.10); GLUCOSE 111 MG/DL (70-104); POTASSIUM 3.3 MMOL/L (3.5-5.1); SODIUM 139 MMOL/L (135-145); TOTAL CARBON DIOXIDE 28.6 MMOL/L (24-32); eGFR 90 ML/MIN
[2019-04-22] MEDS ORDERED: midazolam 2 mg/2 ml injection IV PRN (08:15)
[2019-04-22] MEDS ORDERED: fentaNYL/PF 50MCG/1 ML 2ML syringe IV PRN (08:15)
[2019-04-22] MEDS ORDERED: fentaNYL/PF 50MCG/1 ML 2ML syringe ONE (09:13)
[2019-04-22] MEDS ORDERED: midazolam 2 mg/2 ml injection ONE (09:13)
== END 2019-04-22 11:45 | disposition home or self-care (01) ==
LOC: SSTAY O 06:18
PROVIDERS: ATTEND Radiology Vascular & Interventional Radiology
DX: K65.1 Peritoneal abscess (principal); I10 Essential (primary) hypertension; Z90.49 Acquired absence of other specified parts of digestive tract; Z79.899 Other long term (current) drug therapy; Z98.890 Other specified postprocedural states
CPT/HCPCS: 10030; 36415; 80048; 85025; 85610; 87070; 99152; 99153; J2250; J3010; J7030; 87186; 87205

== ENCOUNTER → 2019-10-07 | Day surgery (SDC) | payer MEDICARE, OTHER | END | disposition home or self-care (01) | LOC: RAD 09:30 | PROVIDERS: ATTEND Surgery | DX: K63.0 Abscess of intestine (principal) | CPT/HCPCS: 74270 ==

== ENCOUNTER 2019-11-15 08:44 | Day surgery (SDC) | payer MEDICARE, OTHER ==
[~2019-11-15] VITALS: Ht 167.6 cm; Wt 87.1 kg
[2019-11-15] VITALS (16 sets, daily range): BP systolic 96–140; BP diastolic 51–87
[2019-11-15] MEDS ORDERED: normal saline 1000ml 1,000 ML IV SCH (09:40)
[2019-11-15] MEDS ORDERED: FLO0.4C PO (09:59)
[2019-11-15 10:13] LABS: BASOPHILS # (AUTO) 0.1 X10'3 (0-0.2); EOSINOPHILS # (AUTO) 0.2 X10'3 (0-0.9); EOSINOPHILS % (AUTO) 2.8 % (0-6); HEMOGLOBIN 14.1 g/dl (14.0-17.9); LYMPHOCYTES # (AUTO) 1.7 X10'3 (1.1-4.8); MEAN CORPUSCULAR HEMOGLOBIN 31.7 PG (27.0-31.0); MEAN CORPUSCULAR HGB CONC 34.4 g/dL (33.0-36.5); MEAN CORPUSCULAR VOLUME 92.1 FL (78-98); MEAN PLATELET VOLUME 7.6 FL (7.4-10.4); MONOCYTES # (AUTO) 0.6 X10'3 (0-0.9); MONOCYTES % (AUTO) 8.8 % (2-12); NEUTROPHILS # (AUTO) 4.5 X10'3 (1.8-7.7); NEUTROPHILS % (AUTO) 63.4 % (42-75); PLATELET COUNT 223 X10'3 (140-440); RED BLOOD COUNT 4.46 X10'6 (4.70-6.10); RED CELL DISTRIBUTION WIDTH 13.4 % (11.5-14.5)
[2019-11-15] MEDS ORDERED: midazolam 2 mg/2 ml injection ONE ×2 (10:37→10:53)
[2019-11-15] MEDS ORDERED: fentaNYL/PF 50MCG/1 ML 2ML syringe ONE ×2 (10:37→10:53)
== END 2019-11-15 12:55 | disposition home or self-care (01) ==
LOC: SSTAY O 08:44
PROVIDERS: ATTEND Radiology Diagnostic Radiology
DX: K65.1 Peritoneal abscess (principal); Z79.01 Long term (current) use of anticoagulants; Z79.899 Other long term (current) drug therapy
CPT/HCPCS: 36415; 49406; 85025; 85610; J2250; J3010; 88108; 88305; J7030